=== PATIENT | male | born 1970 | race African-American/Black ===

== ENCOUNTER 2019-02-24 23:39 | Emergency (ER) | payer OTHER ==
[~2019-02-24] VITALS: Ht 193 cm; Wt 101.6 kg
[2019-02-25] MEDS ORDERED: DOXYCYCLINE 10100 MG PO (00:28)
[2019-02-25] MEDS ORDERED: IBUPROFEN 800800 MG PO (00:28)
[2019-02-25] MEDS ORDERED: ACETAMINOPHEN-1 EAC1 PO (00:28)
[2019-02-25 00:41] VITALS: BP 135/83
== END 2019-02-25 00:42 | disposition home or self-care (01) ==
LOC: M.ERS 23:39
DX: L02.511 Cutaneous abscess of right hand (principal)